=== PATIENT | male | born 1960 | race African-American/Black ===

== ENCOUNTER 2016-04-17 13:33 | Emergency (ER) | payer BC, SELFPAY ==
[2016-06-12] MEDS ORDERED: ADVIL PO (14:05)
== END 2016-04-17 16:20 | disposition home or self-care (01) ==
LOC: ER 13:33
DX: S33.5XXA Sprain of ligaments of lumbar spine, initial encounter (principal); Z87.891 Personal history of nicotine dependence; X50.9XXA Other and unspecified overexertion or strenuous movements or postures, initial encounter
CPT/HCPCS: 72100; 99284

== ENCOUNTER 2016-06-15 04:35 | Day surgery (SDC) | payer BC, SELFPAY ==
[2016-06-12 18:34] LABS: HEMATOCRIT 38.6 % (40.0-51.0); HEMOGLOBIN 13.2 g/dL (13.6-17.8)
--- NOTE | ~2016-06-15 | OP ---
Record Of Operation [facility] [address] [place]. [address] NAME: IDALIA GRIDER : [id number] STATUS : REG [facility] PAT#: [id number] AGE: 55 ADM/REG DATE : 06/15/16 MR#: [id number] REPORT SERV DATE: 06/15/16 DICTATED BY: SINCERE DEL CASTILLO DATE: 06/15/16 REPORT STATUS : Draft TRANSCRIBED BY: MODL DATE: 06/15/16 DATE OF PROCEDURE: 06/15/2016 PREOPERATIVE DIAGNOSIS: Right-sided L3-4 and L4-5 disk herniation and right lumbar radiculopathy. POSTOPERATIVE DIAGNOSIS: Right-sided L3-4 and L4-5 disk herniation and right lumbar radiculopathy. PROCEDURE: Right-sided L3-4 and L4-5 microdiscectomy, use of operative microscope, minimal access spine technology, intraoperative O-arm CT scan with computer navigation with decompression of the right L3 through L5 nerve roots. SURGEON: Sincere Del Castillo DO. ANESTHESIA: General. ESTIMATED BLOOD LOSS: 15 mL. COMPLICATIONS: None. INDICATIONS: The patient is a 55-year-old with intractable right leg pain, failed conservative treatment, and after discussion of risks and benefits, elected to undergo the above noted surgery. PROCEDURE IN DETAIL: I identified the patient in the holding area. Consent was obtained. Went to the operating room. Underwent general anesthesia with endotracheal intubation. Prepped and draped in usual sterile fashion. Operative safety pause was performed, then we proceeded with surgery. The O-arm registration frame was placed in the iliac crest. O-arm was brought in for intraoperative CT scan. Computer registration materials were verified. Under computer guidance, a right-sided incision was made over the L3-L5 level, taken down through the fascial layer. Tube dilators were used to minimally invasively dissect down to the right L3-L4 level. Operative microscope was brought in and a bello was used to perform laminotomy. Kim performed foraminotomy. Knife was used to incise the annulus and free disk material removed with the pituitary. The L3 and L4 nerve roots were free of compression. This was repeated again at the L4-L5 level. Irrigation was performed. Hemostasis was achieved. 40 mg of Depo-Medrol injected over the nerve roots. Layered closure performed. Sterile dressings applied. The patient was awoken and extubated and taken to the recovery room in stable condition. OPERATIVE FINDINGS: Right L3 and L4 disk herniation. CAROL/BETH Record Of [place] [address] [address] [address] NAME: IDALIA GRIDER : [id number] STATUS : REG [facility] PAT#: [id number] AGE: 55 ADM/REG DATE : 06/15/16 MR#: [id number] REPORT SERV DATE: 06/15/16 DICTATED BY: SINCERE DEL CASTILLO DATE: 06/15/16 REPORT STATUS : Draft TRANSCRIBED BY: BETH DATE: 06/15/16 Sincere Del Castillo DO / [id number] CC: Sincere Del Castillo DO
[~2016-06-15 04:35] MED LIST: ADVIL PO
== END 2016-06-15 11:39 | disposition home or self-care (01) ==
LOC: SDC 04:35
PROVIDERS: Orthopaedic Surgery
PROC: 01NB0ZZ Release Lumbar Nerve, Open Approach (ICD-10-PCS; 2016-06-15)
PROC: 0SB20ZZ Excision of Lumbar Vertebral Disc, Open Approach (ICD-10-PCS; principal; 2016-06-15 06:45)
DX: M51.16 Intervertebral disc disorders with radiculopathy, lumbar region (principal); Z87.891 Personal history of nicotine dependence; Z79.899 Other long term (current) drug therapy
CPT/HCPCS: 85014; 85018; 88304; 88311; 93005; A9270-GY; J0690; J1030; J1170; J2250; J2405; J2710; J3010; J3370